=== PATIENT | male | born 1980 | race Caucasian/White ===

== ENCOUNTER 2018-09-01 12:56 | Emergency (ER) | payer BC ==
[2018-09-01 13:46] VITALS: BP 154/92
--- NOTE | 2018-09-01 13:58 | UC ---
General HPI - HPI Summary HPI Summary: pt states he was bitten on his L thumb by a dog [employer]. the dog was on "a retractable leash". he does not know the dog but the educational technology specialist did produce proof of immunizations/ rabies vaccinations. pt denies bone pain and limited rom. - History of Current Complaint Chief Complaint: UCLaceration Stated Complaint: DOG BITY Time Seen by Provider: 09/01/18 13:47 Hx Obtained From: Patient Onset/Duration: Sudden Onset Pain Intensity: 3 Associated Signs & Symptoms: Negative: Edema, Fever - Allergy/Home Medications Allergies/Adverse Reactions: Allergies Allergy/AdvReac Type Severity Reaction Status Date / Time No Known Allergies Allergy Verified 09/01/18 13:40 PMH/Surg Hx/FS Hx/Imm Hx Previously Healthy: Yes - Surgical History Surgical History: None - Family History Known Family History: Positive: Non-Contributory - Social History Alcohol Use: Weekly Alcohol Amount: weekends Substance Use Type: None Smoking Status (MU): Never Smoked Tobacco Review of Systems All Other Systems Reviewed And Are Negative: No Constitutional: Negative: Fever, Chills Skin: Negative: Rash Musculoskeletal: Negative: Decreased ROM Neurological: Negative: Weakness, Paresthesia, Numbness Physical Exam Triage Information Reviewed: Yes Appearance: Well-Appearing Vital Signs: Initial Vital Signs Temp 98.9 F 09/01/18 13:41 Pulse 85 09/01/18 13:41 Resp 16 09/01/18 13:41 BP 154/92 09/01/18 13:41 Pulse Ox 99 09/01/18 13:41 Vital Signs Reviewed: Yes Eyes: Positive: Conjunctiva Clear Respiratory: Positive: No respiratory distress Cardiovascular: Positive: RRR Musculoskeletal: Positive: Other: - LUE: 4cm linear deep abrasion/superficial laceration along the side of thumb. edges of wound are irregular and 2 small pieces are hanging. no bony deformity or tenderness. the thumb has full s/v/m function. rest of hand is unremarkable. Neurological: Positive: Alert Psychological: Positive: Age Appropriate Behavior Skin Exam: Normal Skin: Negative: Rashes Course/Dx - Course Course Of Treatment: WOUND IRRIGATED UNDER PRESSURE WITH 450 ML STERILE WATER BY NURSING. 2 SMALL HANGING PIECES TRIMMED OFF BY THIS PROVIDER. GENTLE TRACTION DOES NOT WIDEN THE WOUND AND ATTEMPTS TO APPROXIMATE GIVE NO IMPROVEMENT THUS NO REPAIR. I DID APPLY TOPICAL ANTIBIOTIC AND A PIECE OF STERILE GAUZE WHICH WAS HELD WITH TUBE GAUZE. NO BLEEDING AND PT TOLERATED WELL. LAST TETANUS WAS 7 YEARS AGO. BP IS ELEVATED; HOWEVER, HE WAS AT HIS PCP YESTERDAY AND IT WAS 120/84 THUS HE ATTRIBUTES THE CURRENT BP TO THIS VISIT. - Differential Dx - Multi-Symptom Differential Diagnoses: Other - NO CONCERN FOR FX, INFECTION OR fb'S - Diagnoses Provider Diagnosis: Dog bite of left thumb Discharge - Sign-Out/Discharge Documenting (check all that apply): Patient Departure All imaging exams completed and their final reports reviewed: No Studies - Discharge Plan Condition: Stable Disposition: HOME Prescriptions: Amoxicillin/Clavulanate TAB* [Augmentin TAB 875*] 875 mg PO BID 10 Days #20 tab Patient Education Materials: Animal Bite (ED) Referrals: Jaqui Méndez MD [Primary Care Provider] - 5 Days - Billing Disposition and Condition Condition: STABLE Disposition: Home
== END 2018-09-01 14:09 | disposition home or self-care (01) ==
LOC: UCCORT 12:56
DX: S61.052A Open bite of left thumb without damage to nail, initial encounter (principal); W54.0XXA Bitten by dog, initial encounter; Y92.9 Unspecified place or not applicable
CPT/HCPCS: 99202; G0463